=== PATIENT | male | born 1980 | race American Indian/Alaskan Native ===

== ENCOUNTER 2017-04-23 12:06 | Emergency (ER) | payer SELFPAY ==
[2017-04-23 12:37] VITALS: BP 153/112
== END 2017-04-23 14:03 ==
LOC: ED 12:06
DX: R07.9 Chest pain, unspecified (principal); Z53.21 Procedure and treatment not carried out due to patient leaving prior to being seen by health care provider

== ENCOUNTER 2019-05-29 11:14 | Emergency (ER) | payer SELFPAY ==
--- NOTE | 2019-05-29 13:30 | Emergency Department Report ---
Blank Doc - Documentation Documentation: 39-year-old male that presents with buttock abscess. This initial assessment/diagnostic orders/clinical plan/treatment(s) is/are subject to change based on patient's health status, clinical progression and re- assessment by fellow clinical providers in the ED. Further treatment and workup at subsequent clinical providers discretion. Patient/guardians urged not to elope from the ED as their condition may be serious if not clinically assessed and managed. Initial orders include: 1- Patient sent to [facility] for further evaluation and treatment
--- NOTE | 2019-05-29 19:38 | Emergency Department Report ---
- General Chief complaint: Abdominal Pain Stated complaint: LUMP ON BACK/PAIN Time Seen by Provider: 05/29/19 13:29 Source: patient Mode of arrival: Ambulatory Limitations: No Limitations - History of Present Illness Initial comments: 39-year-old -[place] male presents to the emergency room complaining of abscess to his backside 3 weeks. Patient states that he was on antibiotics 3 weeks ago when he was incarcerated. Patient states that he's been using warm compresses warm baths and warm showers without much resolution of his abscess. Patient reports that the pains is 6 out of 10 worse with sitting. Patient denies any fever chills no nausea no vomiting no drainage from the abscess. Patient has no known drug allergies no past medical history currently takes no medications on a daily basis. Onset/Timin -: week(s) Tetanus Up to Date: yes Location: buttocks Severity: moderate Severity scale (0 -10): 6 Consistency: constant Improves with: none Worsens with: palpation, movement Associated symptoms: denies other symptoms Treatments Prior to Arrival: none - Related Data Previous Rx's Medication Instructions Recorded Last Taken Type Amoxicillin [Trimox CAP] 500 mg PO Q8H #30 capsule 03/01/13 Unknown Rx Cyclobenzaprine HCl [FLEXERIL] 10 mg PO Q4-6H PRN #12 tablet 05/04/13 Unknown Rx Hydrocodone Bit/Acetaminophen 1 each PO Q4-6H PRN #12 tablet 05/04/13 Unknown Rx [Lortab 5-500 Tablet] Ibuprofen [Motrin 800 MG tab] 800 mg PO TID PRN #14 tablet 05/04/13 Unknown Rx Clindamycin [Clindamycin CAP] 300 mg PO Q8H #30 cap 05/29/19 Unknown Rx Sulfamethoxazole/Trimethoprim 1 each PO BID #20 tablet 05/29/19 Unknown Rx [Bactrim DS TAB] Allergies Allergy/AdvReac Type Severity Reaction Status Date / Time No Known Allergies Allergy Verified 05/04/13 15:15 Abscess Boil HPI - HPI Chief Complaint: Abdominal Pain Stated Complaint: LUMP ON BACK/PAIN Time Seen by Provider: 05/29/19 13:29 Home Medications: Previous Rx's Medication Instructions Recorded Last Taken Type Amoxicillin [Trimox CAP] 500 mg PO Q8H #30 capsule 03/01/13 Unknown Rx Cyclobenzaprine HCl [FLEXERIL] 10 mg PO Q4-6H PRN #12 tablet 05/04/13 Unknown Rx Hydrocodone Bit/Acetaminophen 1 each PO Q4-6H PRN #12 tablet 05/04/13 Unknown Rx [Lortab 5-500 Tablet] Ibuprofen [Motrin 800 MG tab] 800 mg PO TID PRN #14 tablet 05/04/13 Unknown Rx Clindamycin [Clindamycin CAP] 300 mg PO Q8H #30 cap 05/29/19 Unknown Rx Sulfamethoxazole/Trimethoprim 1 each PO BID #20 tablet 05/29/19 Unknown Rx [Bactrim DS TAB] Allergies/Adverse Reactions: Allergies Allergy/AdvReac Type Severity Reaction Status Date / Time No Known Allergies Allergy Verified 05/04/13 15:15 ED Review of Systems ROS: Stated complaint: LUMP ON BACK/PAIN Other details as noted in HPI Comment: All other systems reviewed and negative ED Past Medical Hx - Past Medical History Previous Medical History?: Yes Hx Congestive Heart Failure: Yes Hx COPD: Yes Additional medical history: non hodgekin lymphoma, sarcoidosis - Surgical History Past Surgical History?: No - Social History Smoking Status: Never Smoker Substance Use Type: None - Medications Home Medications: Home Medications Medication Instructions Recorded Confirmed Last Taken Type Amoxicillin [Trimox CAP] 500 mg PO Q8H #30 capsule 03/01/13 Unknown Rx Cyclobenzaprine HCl [FLEXERIL] 10 mg PO Q4-6H PRN #12 tablet 05/04/13 Unknown Rx Hydrocodone Bit/Acetaminophen 1 each PO Q4-6H PRN #12 tablet 05/04/13 Unknown Rx [Lortab 5-500 Tablet] Ibuprofen [Motrin 800 MG tab] 800 mg PO TID PRN #14 tablet 05/04/13 Unknown Rx Clindamycin [Clindamycin CAP] 300 mg PO Q8H #30 cap 05/29/19 Unknown Rx Sulfamethoxazole/Trimethoprim 1 each PO BID #20 tablet 05/29/19 Unknown Rx [Bactrim DS TAB] ED Physical Exam - General Limitations: No Limitations General appearance: alert, in no apparent distress - Head Head exam: Present: atraumatic, normocephalic - Eye Eye exam: Present: normal appearance - ENT ENT exam: Present: normal exam, mucous membranes moist - Neck Neck exam: Present: normal inspection, full ROM - Neurological Exam Neurological exam: Present: alert, oriented X3 - Psychiatric Psychiatric exam: Present: normal affect, normal mood - Expanded Skin Exam Expanded Type of lesion: Present: abscess Description of rash: Present: size (golf ball), tenderness, indurated. Absent: erythematous, fluctuant ED Course Vital Signs 05/29/19 13:31 Temperature 98.4 F Pulse Rate 77 Respiratory 18 Rate Blood Pressure 160/117 O2 Sat by Pulse 99 Oximetry - I & D Right Buttocks Type of Procedure: Simple Site: 6 Blade Size: 11 I & D Procedure: betadine prep, sterile drapes applied, sterile dressing applied Progress: Patient tolerated procedure well. No drainage appreciated ED Medical Decision Making - Medical Decision Making 39-year-old -[place] male presents to the emergency room complaining of abscess to his backside 3 weeks. Patient states that he was on antibiotics 3 weeks ago when he was incarcerated. Patient states that he's been using warm compresses warm baths and warm showers without much resolution of his abscess. Patient reports that the pains is 6 out of 10 worse with sitting. Patient denies any fever chills no nausea no vomiting no drainage from the abscess. Patient has no known drug allergies no past medical history currently takes no medications on a daily basis. Patient appears to have an abscess with no fluctuant attempted to incision and drain with no drainage. Discussed the patient we'll place him on Bactrim and clindamycin. Patient to take [id number] ibuprofen or Tylenol for pain management. Continue with conservative measures such as warm compresses and hot bath soaks. Critical care attestation.: If time is entered above; I have spent that time in minutes in the direct care of this critically ill patient, excluding procedure time. ED Disposition Clinical Impression: Cellulitis and abscess of buttock Disposition: DC-01 TO HOME OR SELFCARE Is pt being admited?: No Does the pt Need Aspirin: No Condition: Stable Instructions: Cellulitis (ED), Abscess (ED) Additional Instructions: Complete antibiotic as prescribed. He can take [id number] Tylenol or ibuprofen as needed for pain management. Continue warm to hot baths for soaking of the abscess. Continue with warm compresses. Follow-up with the primary care provider. Prescriptions: Sulfamethoxazole/Trimethoprim [Bactrim DS TAB] 1 each PO BID #20 tablet Clindamycin [Clindamycin CAP] 300 mg PO Q8H #30 cap Referrals: PRIMARY CAREMD [Primary Care Provider] - 3-5 Days JAMES PAULINO MD [Staff Physician] - 3-5 Days Forms: Work/School Release Form(ED)
[2019-05-29 19:49] VITALS: BP 150/109
== END 2019-05-29 19:45 | disposition home or self-care (01) ==
LOC: ED 11:14
DX: L02.31 Cutaneous abscess of buttock (principal); L03.317 Cellulitis of buttock; I50.9 Heart failure, unspecified; Z79.899 Other long term (current) drug therapy